=== PATIENT | male | born 1940 | race Caucasian/White ===

== ENCOUNTER → 2017-05-01 | Outpatient (REF) | payer BC ==
[~2017-05-01] MED LIST: ATOR40TA PO; CARV12.5 PO; CENTTAB47 PO; CO Q60CA PO; ECOT81TA5 PO; FERR325T3 PO; FISH120012 PO; LASI40TA PO; METF-699 PO; NITR4TASL SL; OMEP40CA2 PO; PREVINJ2 IM; RAMI10CA PO; XARE20TA PO
[2017-05-01 13:25] LABS: PERCENT SATURATION 20.1 % (19.7-37.4)
== END ==
LOC: M LAB REF 12:40
PROVIDERS: ATTEND Internal Medicine
DX: D50.9 Iron deficiency anemia, unspecified (principal)

== ENCOUNTER → 2018-06-15 | Outpatient (REF) | payer BC ==
[2018-06-16 18:16] LABS: VITAMIN B12 LEVEL 632 PG/ML
[2018-06-16 18:17] LABS: FOLATE 8.3 NG/ML
== END ==
LOC: M LAB REF 17:21
DX: D50.9 Iron deficiency anemia, unspecified (principal)
CPT/HCPCS: 82746

== ENCOUNTER → 2018-07-07 | Outpatient (REF) | payer BC ==
[2018-07-07 14:18] LABS: IMMUNOGLOBULIN G 930 MG/DL (681-1648); TOTAL PROTEIN 6.5 GM/DL (6.4-8.2)
[2018-07-07 15:31] LABS: IMMUNOGLOBULIN M 19.4 MG/DL (40-230)
[2018-07-08 12:02] LABS: ALBUMIN 3.98 GM/DL (3.29-5.55); ALBUMIN % 61.3 % (55.8-66.1); ALPHA-1-GLOBULIN % 4.5 % (2.9-4.9); ALPHA-1-GLOBULINS 0.29 GM/DL (0.17-0.41); ALPHA-2-GLOBULINS 0.51 GM/DL (0.42-0.99); ALPHA-2-GLOBULINS % 7.9 % (7.1-11.8); BETA-1-GLOBULINS % 6.4 % (4.7-7.2); BETA-2-GLOBULINS % 5.5 % (3.2-6.5); GAMMA GLOBULIN % 14.4 % (11.1-18.8)
[2018-07-08 12:03] LABS: BETA-1-GLOBULINS 0.42 GM/DL (0.28-0.60); BETA-2-GLOBULINS 0.36 GM/DL (0.19-0.55); GAMMA GLOBULINS 0.94 GM/DL (0.65-1.58)
[2018-07-09 00:13] LABS: Lyme Disease IgG/IgM Antibodie <0.91 ISR (0.00-0.90); Lyme Disease IgM Ab Quantitati <0.80 index (0.00-0.79)
== END ==
LOC: M LAB REF 13:01
DX: D69.6 Thrombocytopenia, unspecified (principal)
CPT/HCPCS: 84165

== ENCOUNTER → 2018-07-13 | Outpatient (REF) | payer BC ==
[2018-07-13 13:44] LABS: SLIDE REVIEW Report; SOURCE PERIPHERAL SMEAR
[2018-07-13 13:45] LABS: REASON FOR REVIEW PLATELET MORPHOLOGY
== END ==
LOC: M LAB REF 12:45
DX: D69.6 Thrombocytopenia, unspecified (principal)
CPT/HCPCS: 88300

== ENCOUNTER → 2018-07-14 | Outpatient (CLI) | payer BC ==
[~2018-07-14] MED LIST changes: -ATOR40TA PO; -CARV12.5 PO; -CENTTAB47 PO; -CO Q60CA PO; -ECOT81TA5 PO; -FERR325T3 PO; -FISH120012 PO; +GASTROGRAFIN SOLUTION 30ML (Q9963) As Ordered; +ISOVUE-370 76% 100ML VIAL (Q9967) As Ordered; -LASI40TA PO; -METF-699 PO; -NITR4TASL SL; -OMEP40CA2 PO; -PREVINJ2 IM; -RAMI10CA PO; -XARE20TA PO
== END ==
LOC: M RAD 16:24
DX: D69.6 Thrombocytopenia, unspecified (principal); I51.7 Cardiomegaly
CPT/HCPCS: Q9963

== ENCOUNTER → 2021-04-27 | Outpatient (CLI) | payer BC ==
[~2021-04-27] MED LIST changes: +ATOR40TA75 PO; +CARV12.5 PO; +CENTTAB47 PO; +CHOL100029 PO; +CO Q60CA PO; +COQ150CH PO; +ECOT81TA5 PO; +FERR325T3 PO; +FISH120012 PO; -GASTROGRAFIN SOLUTION 30ML (Q9963) As Ordered; -ISOVUE-370 76% 100ML VIAL (Q9967) As Ordered; +KP F1200 PO; +LASI40TA9 PO; +METF-817 PO; +MULTCAP PO; +NITR4TASL SL; +OMEP40CA97 PO; +PREVINJ2 IM; +RAMI1CAP26 PO; +XARE20TA PO
--- NOTE | 2021-04-27 12:29 | REPVR ---
PROCEDURE INFORMATION: Exam: MR Head Without Contrast Exam date and time: 04/27/2021 10:55 AM Age: 81 years old Clinical indication: Altered mental status/memory loss; Age related cognitive decline; Additional info: Disorientation TECHNIQUE: Imaging protocol: MR of the head without contrast. COMPARISON: No relevant prior studies available. FINDINGS: Brain: No restricted diffusion is seen to suggest acute infarction. There is no acute intracranial hemorrhage, cerebral edema, or midline shift. Age-related cerebral and cerebellar substance loss is present. Mild increased T2 and FLAIR signal within the periventricular white matter is present. This is nonspecific but likely related to chronic microangiopathic ischemic change. Cerebral ventricles: No hydrocephalus. Bones/joints: Unremarkable. Paranasal sinuses: Small mucous retention cysts are present in the left maxillary sinus. Mastoid air cells: Trace fluid is present in the inferior left mastoid air cells. Orbital cavity: The patient is likely status post bilateral cataract surgery. Soft tissues: Unremarkable. IMPRESSION: 1. No acute intracranial abnormality. 2. Chronic findings as discussed above. Electronically signed by: Earl Feng On 04/27/2021 12:29:34 PM
== END ==
LOC: M PLARAD 10:54
PROVIDERS: ATTEND Nurse Practitioner Adult Health
DX: R41.0 Disorientation, unspecified (principal)

== ENCOUNTER → 2021-05-16 | Outpatient (REF) | payer BC ==
[2021-05-16 13:33] LABS: IRON (FE) 39 UG/DL (65-175); PERCENT SATURATION 8.9 % (19.7-50.0); TOTAL IRON BINDING CAPACITY 436 UG/DL (250-450); TOTAL PROTEIN 6.7 GM/DL (6.4-8.2)
[2021-05-16 13:44] LABS: VITAMIN B12 LEVEL 796 PG/ML
== END ==
LOC: M LAB REF 12:24
PROVIDERS: ATTEND Internal Medicine
DX: R74.8 Abnormal levels of other serum enzymes (principal); D64.9 Anemia, unspecified

== ENCOUNTER → 2021-05-24 | Outpatient (REF) | payer BC ==
[~2021-05-24] MED LIST changes: +OMEP40CA4 PO; -OMEP40CA97 PO
[2021-05-24 13:44] LABS: AMORPHOUS SEDIMENT SMALL (NEGATIVE); APPEARANCE, URINE CLOUDY (CLEAR); BACTERIA, URINE AUTO NEGATIVE (NEGATIVE); BILIRUBIN, URINE AUTO NEGATIVE (NEGATIVE); BLOOD, URINE BLOOD 3+ (NEGATIVE); COLOR, URINE YELLOW (YELLOW); GLUCOSE, URINE (UA) AUTO NEGATIVE (NEGATIVE); KETONE, URINE AUTO NEGATIVE (NEGATIVE); LEUKOCYTE ESTERASE, URINE AUTO 3+ (NEGATIVE); NITRITE, URINE AUTO POSITIVE (NEGATIVE); PROTEIN, URINE AUTO 2+ mg/dL (NEGATIVE); RBC, URINE AUTO TNTC /HPF (0-3); SPECIFIC GRAVITY URINE AUTO 1.013 (1.002-1.035); SQUAMOUS EPITHELIAL CELL UR AU 0 /HPF (0-6); WBC, URINE AUTO TNTC /HPF (0-3)
== END ==
LOC: M LAB REF 12:15
PROVIDERS: ATTEND Nurse Practitioner Adult Health
DX: R31.9 Hematuria, unspecified (principal)

== ENCOUNTER → 2021-06-26 | Outpatient (REF) | payer BC | LOC: M LAB REF 16:55 | PROVIDERS: ATTEND Internal Medicine | DX: D64.9 Anemia, unspecified (principal) ==

== ENCOUNTER → 2021-08-20 | Outpatient (CLI) | payer BC | LOC: M RAD 12:00 | PROVIDERS: ATTEND Nurse Practitioner Family | DX: I72.9 Aneurysm of unspecified site (principal) ==

== ENCOUNTER → 2021-08-23 | Outpatient (REF) | payer BC ==
[2021-08-23 17:13] LABS: PERCENT SATURATION 18.8 % (19.7-50.0)
== END ==
LOC: M LAB REF 16:10
PROVIDERS: ATTEND Internal Medicine
DX: D64.9 Anemia, unspecified (principal)

== ENCOUNTER → 2021-09-13 | Outpatient (REF) | payer BC ==
[2021-09-13 17:00] LABS: PERCENT SATURATION 72.5 % (19.7-50.0)
== END ==
LOC: M LAB REF 16:13
PROVIDERS: ATTEND Internal Medicine
DX: D50.9 Iron deficiency anemia, unspecified (principal)

== ENCOUNTER → 2022-04-10 | Outpatient (REF) | payer BC ==
[2022-04-10 17:14] LABS: PERCENT SATURATION 12.1 % (19.7-50.0)
== END ==
LOC: M LAB REF 16:22
PROVIDERS: ATTEND Internal Medicine
DX: D50.9 Iron deficiency anemia, unspecified (principal)

== ENCOUNTER → 2022-04-12 | Outpatient (REF) | payer BC ==
[2022-04-12 14:11] LABS: HEPATITIS C VIRUS ABY INDEX 0.2 INDEX (<0.8)
== END ==
LOC: M LAB REF 12:12
PROVIDERS: ATTEND Internal Medicine
DX: D64.9 Anemia, unspecified (principal)

== ENCOUNTER 2022-04-16 10:04 | Outpatient (CLI) | payer BC ==
[~2022-04-16] VITALS: Ht 165.1 cm; Wt 95.0 kg
[~2022-04-16 10:04] MED LIST changes: +IRON SUCROSE 25 MG in NS 25 ML IV ONE; +IRON SUCROSE 475 MG in NS 250 ML IV ONE
[2022-04-16 10:25] VITALS: BP 123/58
[2022-04-16 13:00] VITALS: BP 109/61
[2022-04-16 15:00] VITALS: BP 106/55
== END 2022-04-16 15:00 | disposition home or self-care (01) ==
LOC: M INFU 10:04
PROVIDERS: ATTEND Internal Medicine
DX: D50.9 Iron deficiency anemia, unspecified (principal)
CPT/HCPCS: 96365; 96366; J1756